=== PATIENT | female | born 1950 | race Caucasian/White ===

== ENCOUNTER 2019-09-01 16:48 | Emergency (ER) | payer OTHER ==
[~2019-09-01] VITALS: Ht 154.9 cm; Wt 62.1 kg
[2019-09-01 17:15] VITALS: Ht 154.9 cm; Wt 62.1 kg
[2019-09-01 18:59] LABS: BASOPHIL % 0.5 % (0-2); PLATELET COUNT 262 x10^3mcL (130-400); RED CELL DISTRIBUTION WIDTH 12.3 % (11.5-14.5)
[2019-09-01 19:01] LABS: CALCIUM 8.7 mg/dL (8.5-10.1); CARBON DIOXIDE 26.8 mmol/L (21-32); CHLORIDE SERUM 106 mmol/L (98-107); CREATININE SERUM 0.6 mg/dL (0.6-1.0); GFR1 > 60 mL/min; GLUCOSE SERUM 104 mg/dL (74-106); POTASSIUM SERUM 3.7 mmol/L (3.5-5.1); SODIUM SERUM 143 mmol/L (136-145)
[2019-09-01 19:02] LABS: C REACTIVE PROTEIN 2.9 mg/dL (<=0.9)
[2019-09-01 19:06] LABS: ALBUMIN 3.6 g/dL (3.4-5.0); ALKALINE PHOSPHATASE 132 U/L (46-116); ALT/SGPT 23 U/L (14-59); AST/SGOT 22 U/L (15-37); BILIRUBIN TOTAL 0.8 mg/dL (0.20-1.00); TOTAL PROTEIN, SERUM 7.5 g/dL (6.4-8.2)
[2019-09-01 19:07] LABS: UA SPECIFIC GRAVITY 1.025 (1.005-1.035); microscopic required? YES; urine erythrocyte 2+ (NEGATIVE)
[2019-09-01 21:15] VITALS: BP 147/88
== END 2019-09-01 21:15 | disposition home or self-care (01) ==
LOC: ED 16:48
PROVIDERS: Emergency Medicine
DX: K80.70 Calculus of gallbladder and bile duct without cholecystitis without obstruction (principal); K57.30 Diverticulosis of large intestine without perforation or abscess without bleeding; R91.1 Solitary pulmonary nodule; E78.00 Pure hypercholesterolemia, unspecified
CPT/HCPCS: J2405; J3010; J7030